=== PATIENT | female | born 2000 | race American Indian/Alaskan Native ===

== ENCOUNTER 2021-08-07 13:07 | Inpatient (IN) | payer MEDICAID ==
[2021-08-07] MEDS ORDERED: LACTATED RINGERS 500 ML IV ONE (15:00)
[2021-08-07 16:03] LABS: Hematocrit 34.6 % (30.3-42.9); Hemoglobin 11.2 gm/dl (10.1-14.3); Mean Corpuscular HGB Conc 33 % (30-34); Mean Corpuscular Volume 76 fl (79-97); Platelet Count 178 K/mm3 (140-440); Red Blood Count 4.57 M/mm3 (3.65-5.03); Red Cell Distribution Width 16.2 % (13.2-15.2)
[2021-08-07 16:07] LABS: Bilirubin,Urine NEG (Negative); Blood,Urine NEG (Negative); Color,Urine Yellow (Yellow); Hyaline Casts,Urine 1 /LPF; Mucus,Urine FEW /HPF; Urobilinogen,Urine < 2.0 mg/dL (<2.0)
[2021-08-07 16:23] LABS: Alanine Aminotransferase 16 units/L (7-56); Uric Acid 5.5 mg/dL (3.5-7.6)
[2021-08-07] MEDS ORDERED: LACTATED RINGERS 1,000 ML ONE (18:05)
[2021-08-07] MEDS ORDERED: ACETAMINOPHEN 325 MG TAB PO PRN (18:49)
[2021-08-07] MEDS ORDERED: DOCUSATE SODIUM 100 MG CAP PO PRN (18:49)
[2021-08-07 19:48] LABS: Basophils % (Auto) 0.4 % (0.0-1.8); Eosinophils % (Auto) 0.9 % (0.0-4.3); Hematocrit 34.6 % (30.3-42.9); Hemoglobin 11.2 gm/dl (10.1-14.3); Lymphocytes # (Auto) 1.9 K/mm3 (1.2-5.4); Lymphocytes % (Auto) 38.4 % (13.4-35.0); Mean Corpuscular HGB Conc 33 % (30-34); Mean Corpuscular Volume 76 fl (79-97); Monocytes # (Auto) 0.4 K/mm3 (0.0-0.8); Monocytes % (Auto) 7.1 % (0.0-7.3); Platelet Count 178 K/mm3 (140-440); Red Blood Count 4.54 M/mm3 (3.65-5.03); Red Cell Distribution Width 16.3 % (13.2-15.2)
--- NOTE | 2021-08-08 12:42 | History and Physical Report ---
History of Present Illness Date of examination: 08/08/21 Chief complaint: sent from [facility] clinic with elevated blood pressure History of present illness: Pt is a 21 year old -Bel[place]ian primigravida NATALIA 09/03/21 at 36w2d who was sent from [facility] office for delivery secondary to elevated blood pressures, and non-compliance with glucose monitoring. She reports good movement, and denies vaginal bleeding or leakage of fluid. She has had one visit at [facility] after transfer into care at 36 wks complicated by pregestational diabetes on Levimir 34 units QAM, 41 units QPM, Metformin 500 mg BID and Novolog sliding scale with 2 units QPM; limited care, obesity, insufficient care, and an LGA fetus (08/07/21 EFW 3580g, 7lb 14 oz, >90%ile). She is GBS negative. Overnight, she was started on Labetalol 200 mg BID. Past History Past Medical History: diabetes (per HPI ) Past Surgical History: no surgical history Family/Genetic History: diabetes, cancer Social history: no significant social history - Obstetrical History Expected Date of Delivery: 09/03/21 Actual Gestation: 36 Week(s) 2 Day(s) : 1 Medications and Allergies Allergies Allergy/AdvReac Type Severity Reaction Status Date / Time No Known Allergies Allergy Unverified 08/07/21 14:20 Active Meds: Active Medications Acetaminophen (Acetaminophen 325 Mg Tab) 650 mg PO Q4H PRN PRN Reason: Pain MILD(1-3)/Fever >100.5/VINES Docusate Sodium (Docusate Sodium 100 Mg Cap) 100 mg PO Q12H PRN PRN Reason: Constipation Cefazolin Sodium 2 gm/ Sodium (Chloride) 100 mls @ 200 mls/hr IV ONCE ONE; Protocol Stop: 08/08/21 13:29 Labetalol HCl (Labetalol 200 Mg Tab) 200 mg PO BID BRITTANY Last Admin: 08/08/21 06:56 Dose: 200 mg Documented by: Multivitamins/Iron/Calcium ( [id number] Fumarate-Folic Acid Vit Tab) 1 each PO QDAY BRITTANY Review of Systems All systems: negative - Vital Signs Vital signs: Vital Signs Pulse BP Pulse Ox 94 H 136/99 100 08/07/21 14:07 08/07/21 14:07 08/07/21 14:07 Temp Pulse Resp BP Pulse Ox 97.5 F L 99 H 20 101/60 98 08/08/21 09:00 08/08/21 12:18 08/08/21 09:00 08/08/21 12:18 08/08/21 09:00 - Physical Exam Breasts: Positive: deferred Abdomen: Positive: soft (obese, gravid) Uterus: Positive: enlarged (gravid ) Extremities: Positive: edema (trace ) - Obstetrical FHR: auscultation normal Uterine Contraction Monitor Mode: External Uterine Contraction Pattern: Absent Uterine Tone Measurement Phase: Resting Results Result Diagrams: 08/07/21 18:55 08/07/21 14:21 Abnormal lab results 08/07/21 08/07/21 08/07/21 Range/Units 14:21 14:21 15:58 MCV 76 L (79-97) fl MCH 25 L (28-32) pg RDW 16.2 H (13.2-15.2) % Lymph % (Auto) (13.4-35.0) % POC Glucose (70-105) mg/dL Lactate Dehydrogenase 218 H (91-180) units/L Urine WBC (Auto) 10.0 H (0.0-6.0) /HPF U Epithel Cells (Auto) 44.0 H (0-13.0) /HPF 08/07/21 08/07/21 Range/Units 17:45 18:55 MCV 76 L (79-97) fl MCH 25 L (28-32) pg RDW 16.3 H (13.2-15.2) % Lymph % (Auto) 38.4 H (13.4-35.0) % POC Glucose 51 L (70-105) mg/dL Lactate Dehydrogenase (91-180) units/L Urine WBC (Auto) (0.0-6.0) /HPF U Epithel Cells (Auto) (0-13.0) /HPF All other labs normal. Assessment and Plan A: IUP at 36w2d Gestational Hypertension Pregestational diabetes on Levimir 34 units QAM, 41 units QPM, Metformin 500 mg BID and Novolog sliding scale with 2 units QPM; poor compliance Limited care Obesity LGA fetus (08/07/21 EFW 3580g, 7lb 14 oz, >90%ile) GBS negative P: Admit to labor and delivery Steroid course Per MFM recommendation, proceed with delivery Notify NICU Accuchek q 4 hours with sliding scale Closely monitor maternal and status
[2021-08-08] MEDS ORDERED: ePHEDrine SULFATE 50 MG/1 ML INJ IV PRN (12:48)
[2021-08-08] MEDS ORDERED: BUTORPHANOL 2 MG/1 ML INJ IV PRN (12:48)
[2021-08-08] MEDS ORDERED: CARBOPROST TROMETHAMINE 250 MCG/1 ML INJ IM PRN (12:48)
[2021-08-08] MEDS ORDERED: OXYTOCIN 10 UNIT/1 ML INJ IM PRN (12:48)
[2021-08-08] MEDS ORDERED: METHYLERGONOVINE MALEATE 0.2 MG/ML VIAL IM PRN (12:48)
[2021-08-08] MEDS ORDERED: miSOPROStol 200 MCG TAB PR PRN (12:48)
[2021-08-08] MEDS ORDERED: ACETAMINOPHEN 325 MG TAB PO PRN (12:48)
[2021-08-08] MEDS ORDERED: MINERAL OIL 30 ML ORAL LIQD PO PRN (12:48)
[2021-08-08] MEDS ORDERED: LOPERAMIDE 2 MG CAP PO PRN (12:48)
[2021-08-08] MEDS ORDERED: TERBUTALINE 1 MG/1 ML INJ SUB-Q PRN (12:48)
[2021-08-08] MEDS ORDERED: LIDOCAINE (2%) 20 MG/1 ML VIAL 20 ML MDV INFILTRATI ONE (12:48)
[2021-08-08] MEDS ORDERED: hydrALAZINE 20 MG/1 ML INJ IV PRN (12:53)
[2021-08-08] MEDS ORDERED: DEXTROSE 50% IN WATER (25GM) 50 ML SYRINGE IV PRN (12:54)
[2021-08-08] MEDS ORDERED: OXYTOCIN DRIP 30 UNITS/500 ML BAG IV SCH (13:00)
[2021-08-08] MEDS ORDERED: DINOPROSTONE 10 MG VAG SUPP VG ONE (14:00)
[2021-08-08] MEDS: INSULIN REGULAR, HUMAN 100 UNITS/1 ML SUB-Q PRN ×2 (14:33→23:42)
[2021-08-08] MEDS: BETAMET ACET/BETAMET NA PH 6 MG/ML INJ 5 ML MDV IM SCH (15:03)
[2021-08-08] MEDS: LACTATED RINGERS 1,000 ML IV SCH (15:10)
[2021-08-08] MEDS: fentaNYL 100 MCG/2 ML INJ IV PRN (21:51)
[2021-08-09] MEDS: ONDANSETRON 4 MG/2 ML INJ IV PRN ×2 (00:36→12:17)
[2021-08-09] MEDS: fentaNYL 100 MCG/2 ML INJ IV PRN ×3 (00:37→13:07)
[2021-08-09] MEDS: INSULIN REGULAR, HUMAN 100 UNITS/1 ML SUB-Q PRN ×5 (02:55→23:03)
[2021-08-09] MEDS: OXYTOCIN DRIP 30 UNITS/500 ML BAG IV SCH ×2 (02:57→09:03)
[2021-08-09] MEDS ORDERED: miSOPROStol 25 MCG TAB PO SCH (04:00)
[2021-08-09] MEDS ORDERED: CALCIUM CARBONATE 500 MG TAB CHEW PO ONE ×2 (06:02→13:00)
--- NOTE | 2021-08-09 10:28 | Progress Note ---
Assessment and Plan - Patient Problems (1) Diabetes Current Visit: Yes Status: Acute Qualifiers: Diabetes mellitus type: type 2 Diabetes mellitus intermediate insulin use: without refrigeration manager use Plan to address problem: Continue to monitor blood glucose levels Insulin per physician orders (2) Pre-eclampsia affecting , antepartum Current Visit: Yes Status: Acute Plan to address problem: 24 hr urine 645 Continue to monitor B/Ps Continue anti-hypertensives as directed (3) Encounter for induction of labor Current Visit: Yes Status: Acute Subjective - Subjective Date of service: 08/09/21 Principal diagnosis: IOL secondary to elevated B/Ps and uncontrolled DM Interval history: Pt is a 21 year old -G[place]ian primigravida NATALIA 09/03/21 at 36w2d who was sent from [facility] office for delivery secondary to elevated blood pressures, and non-compliance with glucose monitoring. She reports good movement, and denies vaginal bleeding or leakage of fluid. She has had one visit at [facility] after transfer into care at 36 wks complicated by pregestational diabetes on Levimir 34 units QAM, 41 units QPM, Metformin 500 mg BID and Novolog sliding scale with 2 units QPM; limited care, obesity, insufficient care, and an LGA fetus (08/07/21 EFW 3580g, 7lb 14 oz, >90%ile). She is GBS negative. Patient reports: movement normal, contractions, no new complaints, no loss of fluid, no vaginal bleeding Objective - Vital Signs Vital Signs: Vital Signs - 12hr 08/08/21 08/08/21 08/08/21 22:31 22:36 22:41 Temperature Pulse Rate 115 H 112 H 116 H Respiratory Rate Blood Pressure O2 Sat by Pulse 97 97 97 Oximetry 08/08/21 08/08/21 08/08/21 22:46 22:51 22:56 Temperature Pulse Rate 107 H 112 H 117 H Respiratory 18 Rate Blood Pressure 132/87 O2 Sat by Pulse 97 96 97 Oximetry 08/08/21 08/08/21 08/08/21 23:01 23:06 23:11 Temperature Pulse Rate 115 H 123 H 121 H Respiratory Rate Blood Pressure O2 Sat by Pulse 97 98 97 Oximetry 08/08/21 08/08/21 08/08/21 23:16 23:21 23:26 Temperature Pulse Rate 125 H 115 H 118 H Respiratory Rate Blood Pressure 135/88 O2 Sat by Pulse 99 98 97 Oximetry 08/08/21 08/08/21 08/08/21 23:31 23:36 23:41 Temperature Pulse Rate 119 H 119 H 120 H Respiratory Rate Blood Pressure O2 Sat by Pulse 97 97 97 Oximetry 08/08/21 08/08/21 08/08/21 23:46 23:51 23:56 Temperature Pulse Rate 117 H 113 H 116 H Respiratory Rate Blood Pressure O2 Sat by Pulse 98 97 99 Oximetry 08/08/21 08/09/21 08/09/21 23:57 00:01 00:03 Temperature Pulse Rate 110 H 111 H Respiratory Rate Blood Pressure 161/93 O2 Sat by Pulse 99 83 L Oximetry 08/09/21 08/09/21 08/09/21 00:06 00:09 00:11 Temperature Pulse Rate 58 L 60 Respiratory Rate Blood Pressure O2 Sat by Pulse 82 L 80 L 81 L Oximetry 08/09/21 08/09/21 08/09/21 00:22 00:23 00:26 Temperature Pulse Rate 125 H 120 H Respiratory Rate Blood Pressure 129/79 O2 Sat by Pulse 92 96 Oximetry 08/09/21 08/09/21 08/09/21 00:27 00:28 00:33 Temperature 98.2 F Pulse Rate 125 H 123 H 120 H Respiratory 17 Rate Blood Pressure 132/83 O2 Sat by Pulse 97 96 Oximetry 08/09/21 08/09/21 08/09/21 00:38 00:43 00:48 Temperature Pulse Rate 119 H 120 H 124 H Respiratory Rate Blood Pressure O2 Sat by Pulse 98 97 99 Oximetry 08/09/21 08/09/21 08/09/21 00:53 00:56 00:58 Temperature Pulse Rate 118 H 121 H 116 H Respiratory Rate Blood Pressure 129/83 O2 Sat by Pulse 98 99 Oximetry 08/09/21 08/09/21 08/09/21 01:03 01:08 01:13 Temperature Pulse Rate 118 H 122 H 129 H Respiratory Rate Blood Pressure O2 Sat by Pulse 99 99 98 Oximetry 08/09/21 08/09/21 08/09/21 01:18 01:23 01:26 Temperature Pulse Rate 118 H 121 H 123 H Respiratory Rate Blood Pressure 116/69 O2 Sat by Pulse 98 96 Oximetry 08/09/21 08/09/21 08/09/21 01:28 01:33 01:38 Temperature Pulse Rate 113 H 116 H 127 H Respiratory Rate Blood Pressure O2 Sat by Pulse 98 96 98 Oximetry 08/09/21 08/09/21 08/09/21 01:43 01:48 01:53 Temperature Pulse Rate 111 H 105 H 115 H Respiratory Rate Blood Pressure O2 Sat by Pulse 98 97 96 Oximetry 08/09/21 08/09/21 08/09/21 01:56 01:58 02:03 Temperature Pulse Rate 113 H 117 H 107 H Respiratory Rate Blood Pressure 125/69 O2 Sat by Pulse 95 95 Oximetry 08/09/21 08/09/21 08/09/21 02:08 02:13 02:15 Temperature Pulse Rate 106 H 110 H 117 H Respiratory Rate Blood Pressure O2 Sat by Pulse 96 96 94 Oximetry 08/09/21 08/09/21 08/09/21 02:18 02:23 02:26 Temperature Pulse Rate 110 H 115 H 111 H Respiratory Rate Blood Pressure 127/75 O2 Sat by Pulse 95 97 Oximetry 08/09/21 08/09/21 08/09/21 02:28 02:33 02:38 Temperature Pulse Rate 113 H 109 H 114 H Respiratory Rate Blood Pressure O2 Sat by Pulse 96 96 96 Oximetry 08/09/21 08/09/21 08/09/21 02:47 02:52 02:57 Temperature Pulse Rate 130 H 112 H 115 H Respiratory Rate Blood Pressure O2 Sat by Pulse 97 98 99 Oximetry 08/09/21 08/09/21 08/09/21 03:02 03:07 03:12 Temperature Pulse Rate 115 H 110 H 110 H Respiratory Rate Blood Pressure O2 Sat by Pulse 98 97 98 Oximetry 08/09/21 08/09/21 08/09/21 03:17 03:22 03:27 Temperature Pulse Rate 109 H 115 H 111 H Respiratory Rate Blood Pressure 131/74 O2 Sat by Pulse 97 98 99 Oximetry 08/09/21 08/09/21 08/09/21 03:32 03:42 03:47 Temperature Pulse Rate 104 H 112 H 108 H Respiratory Rate Blood Pressure O2 Sat by Pulse 98 98 98 Oximetry 08/09/21 08/09/21 08/09/21 03:52 03:57 04:02 Temperature Pulse Rate 108 H 110 H 112 H Respiratory Rate Blood Pressure 133/79 O2 Sat by Pulse 99 98 99 Oximetry 08/09/21 08/09/21 08/09/21 04:07 04:12 04:17 Temperature Pulse Rate 124 H 131 H 111 H Respiratory Rate Blood Pressure O2 Sat by Pulse 99 100 99 Oximetry 08/09/21 08/09/21 08/09/21 04:22 04:27 04:32 Temperature Pulse Rate 109 H 106 H 106 H Respiratory Rate Blood Pressure 137/80 O2 Sat by Pulse 97 99 98 Oximetry 08/09/21 08/09/21 08/09/21 04:36 04:37 04:42 Temperature 98 F Pulse Rate 103 H 108 H Respiratory Rate Blood Pressure O2 Sat by Pulse 98 99 Oximetry 08/09/21 08/09/21 08/09/21 04:47 04:52 04:56 Temperature Pulse Rate 111 H 106 H 112 H Respiratory Rate Blood Pressure 159/86 O2 Sat by Pulse 99 99 Oximetry 08/09/21 08/09/21 08/09/21 04:57 05:02 05:07 Temperature Pulse Rate 116 H 104 H 107 H Respiratory Rate Blood Pressure O2 Sat by Pulse 99 99 99 Oximetry 08/09/21 08/09/21 08/09/21 05:12 05:17 05:22 Temperature Pulse Rate 105 H 107 H 99 H Respiratory Rate Blood Pressure O2 Sat by Pulse 99 99 97 Oximetry 08/09/21 08/09/21 08/09/21 05:27 05:32 05:54 Temperature Pulse Rate 97 H 102 H 125 H Respiratory Rate Blood Pressure 147/79 O2 Sat by Pulse 97 97 99 Oximetry 08/09/21 08/09/21 08/09/21 05:59 06:04 06:09 Temperature Pulse Rate 149 H 120 H 107 H Respiratory Rate Blood Pressure O2 Sat by Pulse 99 99 99 Oximetry 08/09/21 08/09/21 08/09/21 06:42 06:47 06:52 Temperature Pulse Rate 107 H 110 H 107 H Respiratory Rate Blood Pressure O2 Sat by Pulse 99 98 98 Oximetry 08/09/21 08/09/21 08/09/21 06:57 07:02 07:07 Temperature Pulse Rate 104 H 108 H 100 H Respiratory Rate Blood Pressure O2 Sat by Pulse 100 98 98 Oximetry 08/09/21 08/09/21 08/09/21 07:12 07:17 07:22 Temperature Pulse Rate 105 H 105 H 99 H Respiratory Rate Blood Pressure O2 Sat by Pulse 97 98 98 Oximetry 08/09/21 08/09/21 08/09/21 07:27 07:43 07:48 Temperature Pulse Rate 115 H 103 H 115 H Respiratory Rate Blood Pressure O2 Sat by Pulse 98 97 98 Oximetry 08/09/21 08/09/21 08/09/21 07:54 08:37 08:42 Temperature Pulse Rate 112 H 103 H 106 H Respiratory Rate Blood Pressure 128/79 O2 Sat by Pulse 100 100 Oximetry 08/09/21 08/09/21 08/09/21 08:47 08:52 08:57 Temperature Pulse Rate 99 H 105 H 112 H Respiratory Rate Blood Pressure O2 Sat by Pulse 100 100 100 Oximetry 08/09/21 08/09/21 08/09/21 09:02 09:07 09:12 Temperature Pulse Rate 96 H 98 H 113 H Respiratory Rate Blood Pressure O2 Sat by Pulse 100 98 99 Oximetry 08/09/21 08/09/21 08/09/21 09:17 09:22 09:27 Temperature Pulse Rate 109 H 104 H 95 H Respiratory Rate Blood Pressure O2 Sat by Pulse 99 99 99 Oximetry 08/09/21 08/09/21 08/09/21 09:32 09:37 09:42 Temperature Pulse Rate 106 H 93 H 99 H Respiratory Rate Blood Pressure O2 Sat by Pulse 99 97 98 Oximetry 08/09/21 08/09/21 08/09/21 09:47 09:52 09:57 Temperature Pulse Rate 96 H 100 H 101 H Respiratory Rate Blood Pressure O2 Sat by Pulse 99 98 98 Oximetry 08/09/21 08/09/21 08/09/21 10:02 10:07 10:12 Temperature Pulse Rate 102 H 91 H 124 H Respiratory Rate Blood Pressure O2 Sat by Pulse 98 98 99 Oximetry 08/09/21 08/09/21 08/09/21 10:17 10:22 10:27 Temperature Pulse Rate 119 H 93 H 95 H Respiratory Rate Blood Pressure O2 Sat by Pulse 97 98 98 Oximetry - Exam Breasts: deferred Cardiovascular: Regular rate Lungs: Normal air movement FHR: category 1 Uterine Contraction Monitor Mode: External Cervical Dilatation: 0.5 Cervical Effacement Percentage: 50 station: -3 Uterine Contraction Frequency (min): 3-5 Uterine Contraction Pattern: Irregular Uterine Tone Measurement Phase: Resting Uterine Contraction Intensity: Mild - Labs Labs: Abnormal Labs 08/07/21 08/07/21 08/07/21 14:21 14:21 15:58 MCV 76 L MCH 25 L RDW 16.2 H Lymph % (Auto) POC Glucose Lactate Dehydrogenase 218 H Urine WBC (Auto) 10.0 H U Epithel Cells (Auto) 44.0 H Ur Total Protein 24 Hr Urine Total Protein 08/07/21 08/07/21 08/07/21 17:45 18:49 18:55 MCV 76 L MCH 25 L RDW 16.3 H Lymph % (Auto) 38.4 H POC Glucose 51 L Lactate Dehydrogenase Urine WBC (Auto) U Epithel Cells (Auto) Ur Total Protein 24 Hr 645.00 H Urine Total Protein 43 H 08/08/21 08/08/21 08/09/21 14:16 23:11 02:48 MCV MCH RDW Lymph % (Auto) POC Glucose 194 H 163 H 173 H Lactate Dehydrogenase Urine WBC (Auto) U Epithel Cells (Auto) Ur Total Protein 24 Hr Urine Total Protein 08/09/21 06:45 MCV MCH RDW Lymph % (Auto) POC Glucose 169 H Lactate Dehydrogenase Urine WBC (Auto) U Epithel Cells (Auto) Ur Total Protein 24 Hr Urine Total Protein Laboratory Results - last 24 hr 08/07/21 08/08/21 08/08/21 18:49 14:16 18:24 POC Glucose 194 H 90 Urine Total Volume 1500 Ur Total Protein 24 Hr 645.00 H Urine Total Protein 43 H Coronavirus (PCR) 08/08/21 08/08/21 08/09/21 23:11 Unknown 02:48 POC Glucose 163 H 173 H Urine Total Volume Ur Total Protein 24 Hr Urine Total Protein Coronavirus (PCR) Negative 08/09/21 06:45 POC Glucose 169 H Urine Total Volume Ur Total Protein 24 Hr Urine Total Protein Coronavirus (PCR)
[2021-08-09] MEDS: BETAMET ACET/BETAMET NA PH 6 MG/ML INJ 5 ML MDV IM SCH (10:34)
[2021-08-09] MEDS: LACTATED RINGERS 1,000 ML IV SCH ×2 (10:34→18:58)
[2021-08-09] MEDS: PRENATAL VIT27-FE FUMARATE-FOLIC ACID VIT TAB PO SCH (10:40)
--- NOTE | 2021-08-09 16:19 | Vascular Lab Report ---
. DUPLEX DOPPLER LOWER EXTREMITY VEINS, BILATERAL INDICATION / CLINICAL INFORMATION: LEG PAIN. TECHNIQUE: Duplex doppler imaging was performed through the veins of both lower extremities using venous sandee joanna and other maneuvers. COMPARISON: None available. FINDINGS: RIGHT COMMON FEMORAL VEIN: Negative. RIGHT FEMORAL VEIN: Negative. RIGHT POPLITEAL VEIN: Negative. RIGHT CALF VEINS: Negative. LEFT COMMON FEMORAL VEIN: Negative. LEFT FEMORAL VEIN: Negative. LEFT POPLITEAL VEIN: Negative. LEFT CALF VEINS: Negative. ADDITIONAL FINDINGS: None. IMPRESSION: 1. No sonographic evidence for DVT in either lower extremity. Signer Name: Og Gould MD Signed: 08/09/2021 4:14 PM Workstation Name: [id number]
[2021-08-09] MEDS ORDERED: BUTORPHANOL 2 MG/1 ML INJ IV PRN (17:32)
--- NOTE | 2021-08-09 17:40 | Progress Note ---
Assessment and Plan - Patient Problems (1) Diabetes Current Visit: Yes Status: Acute Qualifiers: Diabetes mellitus type: type 2 Diabetes mellitus usp insulin use: without intermediate card tender use Plan to address problem: Continue to monitor blood glucose levels Insulin per physician orders (2) Pre-eclampsia affecting , antepartum Current Visit: Yes Status: Acute Plan to address problem: 24 hr urine 645 Continue to monitor B/Ps Continue anti-hypertensives as directed (3) Encounter for induction of labor Current Visit: Yes Status: Acute Plan to address problem: Cooks balloon inserted without difficulty Pitocin to remain on low-dose at 6mu/min Pain meds as desired per orders Discussed negative bilateral leg dopplers for DVTs and edema secondary to pre- eclampsia Continue to monitor and maternal status closely Subjective - Subjective Date of service: 08/09/21 Principal diagnosis: IOL secondary to elevated B/Ps and uncontrolled DM Interval history: Pt is a 21 year old -[place] primigravida NATALIA 09/03/21 at 36w2d who was sent from [facility] office for delivery secondary to elevated blood pressures, and non-compliance with glucose monitoring. She reports good movement, and denies vaginal bleeding or leakage of fluid. She has had one visit at [facility] after transfer into care at 36 wks complicated by pregestational diabetes on Levimir 34 units QAM, 41 units QPM, Metformin 500 mg BID and Novolog sliding scale with 2 units QPM; limited care, obesity, insufficient care, and an LGA fetus (08/07/21 EFW 3580g, 7lb 14 oz, >90%ile). She is GBS negative. Patient reports: movement normal, contractions, no new complaints, no loss of fluid, no vaginal bleeding Objective - Vital Signs Vital Signs: Vital Signs - 12hr 08/09/21 08/09/21 08/09/21 05:54 05:59 06:04 Temperature Pulse Rate 125 H 149 H 120 H Blood Pressure O2 Sat by Pulse 99 99 99 Oximetry O2 Sat by Pulse Oximetry [ Anterior Bilateral] 08/09/21 08/09/21 08/09/21 06:09 06:42 06:47 Temperature Pulse Rate 107 H 107 H 110 H Blood Pressure O2 Sat by Pulse 99 99 98 Oximetry O2 Sat by Pulse Oximetry [ Anterior Bilateral] 08/09/21 08/09/21 08/09/21 06:52 06:57 07:02 Temperature Pulse Rate 107 H 104 H 108 H Blood Pressure O2 Sat by Pulse 98 100 98 Oximetry O2 Sat by Pulse Oximetry [ Anterior Bilateral] 08/09/21 08/09/21 08/09/21 07:07 07:12 07:17 Temperature Pulse Rate 100 H 105 H 105 H Blood Pressure O2 Sat by Pulse 98 97 98 Oximetry O2 Sat by Pulse Oximetry [ Anterior Bilateral] 08/09/21 08/09/21 08/09/21 07:22 07:27 07:43 Temperature Pulse Rate 99 H 115 H 103 H Blood Pressure O2 Sat by Pulse 98 98 97 Oximetry O2 Sat by Pulse Oximetry [ Anterior Bilateral] 08/09/21 08/09/21 08/09/21 07:48 07:54 08:00 Temperature 98.2 F Pulse Rate 115 H 112 H Blood Pressure 128/79 O2 Sat by Pulse 98 Oximetry O2 Sat by Pulse Oximetry [ Anterior Bilateral] 08/09/21 08/09/21 08/09/21 08:30 08:37 08:42 Temperature Pulse Rate 103 H 106 H Blood Pressure O2 Sat by Pulse 100 100 Oximetry O2 Sat by Pulse 99 Oximetry [ Anterior Bilateral] 08/09/21 08/09/21 08/09/21 08:47 08:52 08:57 Temperature Pulse Rate 99 H 105 H 112 H Blood Pressure O2 Sat by Pulse 100 100 100 Oximetry O2 Sat by Pulse Oximetry [ Anterior Bilateral] 08/09/21 08/09/21 08/09/21 09:02 09:07 09:12 Temperature Pulse Rate 96 H 98 H 113 H Blood Pressure O2 Sat by Pulse 100 98 99 Oximetry O2 Sat by Pulse Oximetry [ Anterior Bilateral] 08/09/21 08/09/21 08/09/21 09:17 09:22 09:27 Temperature Pulse Rate 109 H 104 H 95 H Blood Pressure O2 Sat by Pulse 99 99 99 Oximetry O2 Sat by Pulse Oximetry [ Anterior Bilateral] 08/09/21 08/09/21 08/09/21 09:32 09:37 09:42 Temperature Pulse Rate 106 H 93 H 99 H Blood Pressure O2 Sat by Pulse 99 97 98 Oximetry O2 Sat by Pulse Oximetry [ Anterior Bilateral] 08/09/21 08/09/21 08/09/21 09:47 09:52 09:57 Temperature Pulse Rate 96 H 100 H 101 H Blood Pressure O2 Sat by Pulse 99 98 98 Oximetry O2 Sat by Pulse Oximetry [ Anterior Bilateral] 08/09/21 08/09/21 08/09/21 10:02 10:07 10:12 Temperature Pulse Rate 102 H 91 H 124 H Blood Pressure O2 Sat by Pulse 98 98 99 Oximetry O2 Sat by Pulse Oximetry [ Anterior Bilateral] 08/09/21 08/09/21 08/09/21 10:17 10:22 10:27 Temperature Pulse Rate 119 H 93 H 95 H Blood Pressure O2 Sat by Pulse 97 98 98 Oximetry O2 Sat by Pulse Oximetry [ Anterior Bilateral] 08/09/21 08/09/21 08/09/21 10:32 10:37 10:38 Temperature Pulse Rate 142 H 116 H 113 H Blood Pressure 128/79 O2 Sat by Pulse 99 99 Oximetry O2 Sat by Pulse Oximetry [ Anterior Bilateral] 08/09/21 08/09/21 08/09/21 10:42 10:47 10:52 Temperature Pulse Rate 117 H 109 H 104 H Blood Pressure O2 Sat by Pulse 99 98 97 Oximetry O2 Sat by Pulse Oximetry [ Anterior Bilateral] 08/09/21 08/09/21 08/09/21 10:57 11:02 11:07 Temperature Pulse Rate 98 H 100 H 108 H Blood Pressure O2 Sat by Pulse 98 99 99 Oximetry O2 Sat by Pulse Oximetry [ Anterior Bilateral] 08/09/21 08/09/21 08/09/21 11:12 11:17 11:22 Temperature Pulse Rate 100 H 113 H 108 H Blood Pressure O2 Sat by Pulse 97 98 99 Oximetry O2 Sat by Pulse Oximetry [ Anterior Bilateral] 08/09/21 08/09/21 08/09/21 11:27 11:32 11:33 Temperature Pulse Rate 121 H 113 H 106 H Blood Pressure 161/93 O2 Sat by Pulse 99 99 Oximetry O2 Sat by Pulse Oximetry [ Anterior Bilateral] 08/09/21 08/09/21 08/09/21 11:37 11:42 11:47 Temperature Pulse Rate 92 H 112 H 95 H Blood Pressure O2 Sat by Pulse 98 98 99 Oximetry O2 Sat by Pulse Oximetry [ Anterior Bilateral] 08/09/21 08/09/21 08/09/21 11:52 11:57 12:00 Temperature 98.1 F Pulse Rate 98 H 107 H Blood Pressure O2 Sat by Pulse 98 98 Oximetry O2 Sat by Pulse Oximetry [ Anterior Bilateral] 08/09/21 08/09/21 08/09/21 12:02 12:03 12:07 Temperature Pulse Rate 108 H 99 H 100 H Blood Pressure 126/75 O2 Sat by Pulse 98 98 Oximetry O2 Sat by Pulse Oximetry [ Anterior Bilateral] 08/09/21 08/09/21 08/09/21 12:28 12:33 12:38 Temperature Pulse Rate 110 H 97 H 117 H Blood Pressure 143/80 O2 Sat by Pulse 99 99 98 Oximetry O2 Sat by Pulse Oximetry [ Anterior Bilateral] 08/09/21 08/09/21 08/09/21 12:43 12:48 12:49 Temperature Pulse Rate 98 H 98 H 43 L Blood Pressure O2 Sat by Pulse 99 99 88 Oximetry O2 Sat by Pulse Oximetry [ Anterior Bilateral] 08/09/21 08/09/21 08/09/21 12:54 12:59 13:04 Temperature Pulse Rate 94 H 112 H 108 H Blood Pressure O2 Sat by Pulse 91 96 99 Oximetry O2 Sat by Pulse Oximetry [ Anterior Bilateral] 08/09/21 08/09/21 08/09/21 13:05 13:09 13:14 Temperature Pulse Rate 92 H 99 H 103 H Blood Pressure 144/76 O2 Sat by Pulse 97 98 Oximetry O2 Sat by Pulse Oximetry [ Anterior Bilateral] 08/09/21 08/09/21 08/09/21 13:19 13:24 13:29 Temperature Pulse Rate 92 H 98 H 109 H Blood Pressure O2 Sat by Pulse 99 98 99 Oximetry O2 Sat by Pulse Oximetry [ Anterior Bilateral] 08/09/21 08/09/21 08/09/21 13:34 13:39 13:44 Temperature Pulse Rate 103 H 100 H 98 H Blood Pressure 126/76 O2 Sat by Pulse 97 97 99 Oximetry O2 Sat by Pulse Oximetry [ Anterior Bilateral] 08/09/21 08/09/21 08/09/21 13:49 13:54 13:59 Temperature Pulse Rate 117 H 90 109 H Blood Pressure O2 Sat by Pulse 97 97 99 Oximetry O2 Sat by Pulse Oximetry [ Anterior Bilateral] 08/09/21 08/09/21 08/09/21 14:04 14:05 14:09 Temperature Pulse Rate 107 H 107 H 111 H Blood Pressure 127/77 O2 Sat by Pulse 98 97 Oximetry O2 Sat by Pulse Oximetry [ Anterior Bilateral] 08/09/21 08/09/21 08/09/21 14:14 14:19 14:24 Temperature Pulse Rate 98 H 100 H 101 H Blood Pressure O2 Sat by Pulse 98 99 99 Oximetry O2 Sat by Pulse Oximetry [ Anterior Bilateral] 08/09/21 08/09/21 08/09/21 14:29 14:34 14:39 Temperature Pulse Rate 104 H 103 H 99 H Blood Pressure 131/85 O2 Sat by Pulse 99 99 100 Oximetry O2 Sat by Pulse Oximetry [ Anterior Bilateral] 08/09/21 08/09/21 08/09/21 14:44 14:49 14:54 Temperature Pulse Rate 111 H 107 H 95 H Blood Pressure O2 Sat by Pulse 98 99 99 Oximetry O2 Sat by Pulse Oximetry [ Anterior Bilateral] 08/09/21 08/09/21 08/09/21 14:59 15:03 15:04 Temperature Pulse Rate 94 H 93 H 96 H Blood Pressure 134/75 O2 Sat by Pulse 98 98 Oximetry O2 Sat by Pulse Oximetry [ Anterior Bilateral] 08/09/21 08/09/21 08/09/21 15:09 15:14 15:19 Temperature Pulse Rate 108 H 98 H 104 H Blood Pressure O2 Sat by Pulse 98 98 98 Oximetry O2 Sat by Pulse Oximetry [ Anterior Bilateral] 08/09/21 08/09/21 08/09/21 15:24 15:29 15:34 Temperature Pulse Rate 99 H 113 H 103 H Blood Pressure O2 Sat by Pulse 97 99 98 Oximetry O2 Sat by Pulse Oximetry [ Anterior Bilateral] 08/09/21 08/09/21 08/09/21 15:35 15:39 15:44 Temperature Pulse Rate 104 H 101 H 103 H Blood Pressure 135/81 O2 Sat by Pulse 98 99 Oximetry O2 Sat by Pulse Oximetry [ Anterior Bilateral] 08/09/21 08/09/21 08/09/21 15:49 15:54 15:59 Temperature 98.2 F Pulse Rate 113 H 122 H 95 H Blood Pressure O2 Sat by Pulse 98 99 99 Oximetry O2 Sat by Pulse Oximetry [ Anterior Bilateral] 08/09/21 08/09/21 08/09/21 16:00 16:04 16:09 Temperature 98.4 F Pulse Rate 109 H 99 H Blood Pressure 134/74 O2 Sat by Pulse 98 98 Oximetry O2 Sat by Pulse Oximetry [ Anterior Bilateral] 08/09/21 08/09/21 08/09/21 16:14 16:19 16:24 Temperature Pulse Rate 106 H 99 H 102 H Blood Pressure O2 Sat by Pulse 99 96 97 Oximetry O2 Sat by Pulse Oximetry [ Anterior Bilateral] 08/09/21 08/09/21 08/09/21 16:29 16:43 16:48 Temperature Pulse Rate 100 H 105 H 95 H Blood Pressure O2 Sat by Pulse 99 98 98 Oximetry O2 Sat by Pulse Oximetry [ Anterior Bilateral] 08/09/21 08/09/21 08/09/21 16:53 16:58 17:03 Temperature Pulse Rate 101 H 102 H 117 H Blood Pressure O2 Sat by Pulse 96 98 100 Oximetry O2 Sat by Pulse Oximetry [ Anterior Bilateral] 08/09/21 08/09/21 08/09/21 17:04 17:08 17:13 Temperature Pulse Rate 103 H 103 H 101 H Blood Pressure 133/86 O2 Sat by Pulse 99 98 Oximetry O2 Sat by Pulse Oximetry [ Anterior Bilateral] 08/09/21 08/09/21 08/09/21 17:18 17:23 17:28 Temperature Pulse Rate 111 H 106 H 108 H Blood Pressure O2 Sat by Pulse 99 100 98 Oximetry O2 Sat by Pulse Oximetry [ Anterior Bilateral] 08/09/21 17:33 Temperature Pulse Rate 103 H Blood Pressure O2 Sat by Pulse 99 Oximetry O2 Sat by Pulse Oximetry [ Anterior Bilateral] - Exam Breasts: deferred Cardiovascular: Regular rate Lungs: Normal air movement FHR: category 1 Uterine Contraction Monitor Mode: External Cervical Dilatation: 1 (vertex) Cervical Effacement Percentage: 50 station: -3 Uterine Contraction Frequency (min): 2-5 Uterine Contraction Pattern: Irregular Uterine Tone Measurement Phase: Resting Uterine Contraction Intensity: Mild Extremities: edema Deep Tendon Reflex Grade: Normal +2 - Labs Labs: Abnormal Labs 08/07/21 08/07/21 08/07/21 14:21 14:21 15:58 MCV 76 L MCH 25 L RDW 16.2 H Lymph % (Auto) POC Glucose Lactate Dehydrogenase 218 H Urine WBC (Auto) 10.0 H U Epithel Cells (Auto) 44.0 H Ur Total Protein 24 Hr Urine Total Protein 08/07/21 08/07/21 08/07/21 17:45 18:49 18:55 MCV 76 L MCH 25 L RDW 16.3 H Lymph % (Auto) 38.4 H POC Glucose 51 L Lactate Dehydrogenase Urine WBC (Auto) U Epithel Cells (Auto) Ur Total Protein 24 Hr 645.00 H Urine Total Protein 43 H 08/08/21 08/08/21 08/09/21 14:16 23:11 02:48 MCV MCH RDW Lymph % (Auto) POC Glucose 194 H 163 H 173 H Lactate Dehydrogenase Urine WBC (Auto) U Epithel Cells (Auto) Ur Total Protein 24 Hr Urine Total Protein 08/09/21 08/09/21 08/09/21 06:45 11:05 15:53 MCV MCH RDW Lymph % (Auto) POC Glucose 169 H 181 H 146 H Lactate Dehydrogenase Urine WBC (Auto) U Epithel Cells (Auto) Ur Total Protein 24 Hr Urine Total Protein Laboratory Results - last 24 hr 08/07/21 08/08/21 08/08/21 18:49 18:24 23:11 POC Glucose 90 163 H Urine Total Volume 1500 Ur Total Protein 24 Hr 645.00 H Urine Total Protein 43 H 08/09/21 08/09/21 08/09/21 02:48 06:45 11:05 POC Glucose 173 H 169 H 181 H Urine Total Volume Ur Total Protein 24 Hr Urine Total Protein 08/09/21 15:53 POC Glucose 146 H Urine Total Volume Ur Total Protein 24 Hr Urine Total Protein
[2021-08-09] MEDS ORDERED: diphenhydrAMINE 50 MG CAP PO ONE (20:06)
[2021-08-10] MEDS: fentaNYL 100 MCG/2 ML INJ IV PRN ×4 (01:56→12:49)
[2021-08-10] MEDS: INSULIN REGULAR, HUMAN 100 UNITS/1 ML SUB-Q PRN ×4 (03:21→18:34)
[2021-08-10] MEDS: PRENATAL VIT27-FE FUMARATE-FOLIC ACID VIT TAB PO SCH (09:12)
[2021-08-10] MEDS: LACTATED RINGERS 1,000 ML IV SCH ×2 (09:56→22:37)
--- NOTE | 2021-08-10 12:21 | Progress Note ---
Assessment and Plan - Patient Problems (1) Diabetes Current Visit: Yes Status: Acute Qualifiers: Diabetes mellitus type: type 2 Diabetes mellitus alf insulin use: without superintendent terminal use Plan to address problem: Continue induction as scheduled (2) PIH ( induced hypertension) Current Visit: Yes Status: Acute Subjective - Subjective Date of service: 08/10/21 Principal diagnosis: IOL secondary to elevated B/Ps and uncontrolled DM Interval history: Amniotomy was performed with blood-tinged fluid. Cervix is 3 cm dilated. will continue to increase Pitocin. Patient reports: loss of fluid, movement normal, contractions, no new complaints, no vaginal bleeding Objective - Vital Signs Vital Signs: Vital Signs - 12hr 08/10/21 08/10/21 08/10/21 00:22 00:27 00:32 Pulse Rate 107 H 106 H 117 H Respiratory Rate Blood Pressure O2 Sat by Pulse 98 98 99 Oximetry O2 Sat by Pulse Oximetry [ Anterior Bilateral] 08/10/21 08/10/21 08/10/21 00:33 00:37 00:42 Pulse Rate 118 H 125 H 114 H Respiratory Rate Blood Pressure 165/83 O2 Sat by Pulse 99 100 Oximetry O2 Sat by Pulse Oximetry [ Anterior Bilateral] 08/10/21 08/10/21 08/10/21 00:47 00:52 00:57 Pulse Rate 114 H 103 H 118 H Respiratory Rate Blood Pressure O2 Sat by Pulse 100 99 98 Oximetry O2 Sat by Pulse Oximetry [ Anterior Bilateral] 08/10/21 08/10/21 08/10/21 01:02 01:03 01:07 Pulse Rate 105 H 108 H 108 H Respiratory Rate Blood Pressure 172/93 O2 Sat by Pulse 99 99 Oximetry O2 Sat by Pulse Oximetry [ Anterior Bilateral] 08/10/21 08/10/21 08/10/21 01:12 01:15 01:17 Pulse Rate 108 H 111 H Respiratory Rate Blood Pressure 173/93 O2 Sat by Pulse 99 98 Oximetry O2 Sat by Pulse Oximetry [ Anterior Bilateral] 08/10/21 08/10/21 08/10/21 01:22 01:30 01:32 Pulse Rate 111 H 124 H 116 H Respiratory Rate Blood Pressure 133/81 O2 Sat by Pulse 98 100 Oximetry O2 Sat by Pulse Oximetry [ Anterior Bilateral] 08/10/21 08/10/21 08/10/21 01:35 01:40 01:45 Pulse Rate 115 H 121 H 118 H Respiratory Rate Blood Pressure O2 Sat by Pulse 99 100 99 Oximetry O2 Sat by Pulse Oximetry [ Anterior Bilateral] 08/10/21 08/10/21 08/10/21 01:50 01:55 01:56 Pulse Rate 107 H 112 H Respiratory 18 Rate Blood Pressure O2 Sat by Pulse 99 99 Oximetry O2 Sat by Pulse Oximetry [ Anterior Bilateral] 08/10/21 08/10/21 08/10/21 02:00 02:03 02:05 Pulse Rate 117 H 120 H 119 H Respiratory Rate Blood Pressure 128/84 O2 Sat by Pulse 99 97 Oximetry O2 Sat by Pulse Oximetry [ Anterior Bilateral] 08/10/21 08/10/21 08/10/21 02:10 02:15 02:20 Pulse Rate 121 H 119 H 122 H Respiratory Rate Blood Pressure O2 Sat by Pulse 99 98 99 Oximetry O2 Sat by Pulse Oximetry [ Anterior Bilateral] 08/10/21 08/10/21 08/10/21 02:25 02:30 02:32 Pulse Rate 115 H 122 H 121 H Respiratory Rate Blood Pressure 123/68 O2 Sat by Pulse 98 98 Oximetry O2 Sat by Pulse Oximetry [ Anterior Bilateral] 08/10/21 08/10/21 08/10/21 02:35 02:40 02:45 Pulse Rate 122 H 119 H 112 H Respiratory Rate Blood Pressure O2 Sat by Pulse 97 98 98 Oximetry O2 Sat by Pulse Oximetry [ Anterior Bilateral] 08/10/21 08/10/21 08/10/21 02:50 02:55 02:56 Pulse Rate 118 H 119 H Respiratory 18 Rate Blood Pressure O2 Sat by Pulse 98 99 Oximetry O2 Sat by Pulse Oximetry [ Anterior Bilateral] 08/10/21 08/10/21 08/10/21 03:00 03:02 03:05 Pulse Rate 120 H 125 H 109 H Respiratory Rate Blood Pressure 124/78 O2 Sat by Pulse 97 98 Oximetry O2 Sat by Pulse Oximetry [ Anterior Bilateral] 08/10/21 08/10/21 08/10/21 03:10 03:15 03:20 Pulse Rate 114 H 134 H 128 H Respiratory Rate Blood Pressure O2 Sat by Pulse 98 99 97 Oximetry O2 Sat by Pulse Oximetry [ Anterior Bilateral] 08/10/21 08/10/21 08/10/21 03:36 03:41 03:46 Pulse Rate 138 H 120 H 112 H Respiratory Rate Blood Pressure O2 Sat by Pulse 99 98 99 Oximetry O2 Sat by Pulse Oximetry [ Anterior Bilateral] 08/10/21 08/10/21 08/10/21 03:51 03:56 04:01 Pulse Rate 107 H 111 H 108 H Respiratory Rate Blood Pressure O2 Sat by Pulse 98 98 99 Oximetry O2 Sat by Pulse Oximetry [ Anterior Bilateral] 08/10/21 08/10/21 08/10/21 04:03 04:06 04:11 Pulse Rate 114 H 127 H 116 H Respiratory Rate Blood Pressure 150/78 O2 Sat by Pulse 99 99 Oximetry O2 Sat by Pulse Oximetry [ Anterior Bilateral] 08/10/21 08/10/21 08/10/21 04:16 04:21 04:30 Pulse Rate 119 H 123 H 127 H Respiratory Rate Blood Pressure O2 Sat by Pulse 98 99 100 Oximetry O2 Sat by Pulse Oximetry [ Anterior Bilateral] 08/10/21 08/10/21 08/10/21 04:33 04:35 04:40 Pulse Rate 116 H 120 H 116 H Respiratory Rate Blood Pressure 134/82 O2 Sat by Pulse 100 99 Oximetry O2 Sat by Pulse Oximetry [ Anterior Bilateral] 08/10/21 08/10/21 08/10/21 04:45 04:50 04:55 Pulse Rate 106 H 120 H 130 H Respiratory Rate Blood Pressure O2 Sat by Pulse 99 98 99 Oximetry O2 Sat by Pulse Oximetry [ Anterior Bilateral] 08/10/21 08/10/21 08/10/21 05:00 05:03 05:05 Pulse Rate 112 H 107 H 120 H Respiratory Rate Blood Pressure 132/69 O2 Sat by Pulse 99 99 Oximetry O2 Sat by Pulse Oximetry [ Anterior Bilateral] 08/10/21 08/10/21 08/10/21 05:10 05:15 05:20 Pulse Rate 107 H 103 H 112 H Respiratory Rate Blood Pressure O2 Sat by Pulse 99 99 99 Oximetry O2 Sat by Pulse Oximetry [ Anterior Bilateral] 08/10/21 08/10/21 08/10/21 05:25 05:32 05:33 Pulse Rate 105 H 109 H 108 H Respiratory Rate Blood Pressure 133/78 O2 Sat by Pulse 99 100 Oximetry O2 Sat by Pulse Oximetry [ Anterior Bilateral] 08/10/21 08/10/21 08/10/21 05:37 05:42 05:47 Pulse Rate 111 H 107 H 104 H Respiratory Rate Blood Pressure O2 Sat by Pulse 99 98 99 Oximetry O2 Sat by Pulse Oximetry [ Anterior Bilateral] 08/10/21 08/10/21 08/10/21 05:52 05:57 06:02 Pulse Rate 113 H 113 H 110 H Respiratory Rate Blood Pressure 133/73 O2 Sat by Pulse 99 100 100 Oximetry O2 Sat by Pulse Oximetry [ Anterior Bilateral] 08/10/21 08/10/21 08/10/21 06:07 06:12 06:17 Pulse Rate 107 H 111 H 109 H Respiratory Rate Blood Pressure O2 Sat by Pulse 99 99 100 Oximetry O2 Sat by Pulse Oximetry [ Anterior Bilateral] 08/10/21 08/10/21 08/10/21 06:22 06:27 06:32 Pulse Rate 104 H 105 H 108 H Respiratory Rate Blood Pressure O2 Sat by Pulse 100 98 98 Oximetry O2 Sat by Pulse Oximetry [ Anterior Bilateral] 08/10/21 08/10/21 08/10/21 06:34 06:37 06:42 Pulse Rate 102 H 122 H 108 H Respiratory Rate Blood Pressure 142/75 O2 Sat by Pulse 99 99 Oximetry O2 Sat by Pulse Oximetry [ Anterior Bilateral] 08/10/21 08/10/21 08/10/21 06:47 06:52 06:57 Pulse Rate 112 H 105 H 115 H Respiratory Rate Blood Pressure O2 Sat by Pulse 99 99 100 Oximetry O2 Sat by Pulse Oximetry [ Anterior Bilateral] 08/10/21 08/10/21 08/10/21 07:02 07:03 07:07 Pulse Rate 113 H 106 H 99 H Respiratory Rate Blood Pressure 151/89 O2 Sat by Pulse 99 100 Oximetry O2 Sat by Pulse Oximetry [ Anterior Bilateral] 08/10/21 08/10/21 08/10/21 07:12 07:17 07:22 Pulse Rate 113 H 107 H 111 H Respiratory Rate Blood Pressure O2 Sat by Pulse 97 99 99 Oximetry O2 Sat by Pulse 100 Oximetry [ Anterior Bilateral] 08/10/21 08/10/21 08/10/21 07:27 07:32 07:57 Pulse Rate 104 H 107 H 105 H Respiratory Rate Blood Pressure O2 Sat by Pulse 99 99 99 Oximetry O2 Sat by Pulse Oximetry [ Anterior Bilateral] 08/10/21 08/10/21 08/10/21 08:02 08:03 08:07 Pulse Rate 117 H 98 H 103 H Respiratory Rate Blood Pressure 137/77 O2 Sat by Pulse 99 100 Oximetry O2 Sat by Pulse Oximetry [ Anterior Bilateral] 08/10/21 08/10/21 08/10/21 08:12 08:17 08:22 Pulse Rate 116 H 99 H 99 H Respiratory Rate Blood Pressure O2 Sat by Pulse 100 100 100 Oximetry O2 Sat by Pulse Oximetry [ Anterior Bilateral] 08/10/21 08/10/21 08/10/21 08:27 08:32 08:33 Pulse Rate 101 H 99 H 100 H Respiratory Rate Blood Pressure 129/76 O2 Sat by Pulse 99 100 Oximetry O2 Sat by Pulse Oximetry [ Anterior Bilateral] 08/10/21 08/10/21 08/10/21 08:37 08:42 08:47 Pulse Rate 104 H 106 H 99 H Respiratory Rate Blood Pressure O2 Sat by Pulse 99 100 100 Oximetry O2 Sat by Pulse Oximetry [ Anterior Bilateral] 08/10/21 08/10/21 08/10/21 08:52 08:57 09:02 Pulse Rate 113 H 104 H 115 H Respiratory Rate Blood Pressure O2 Sat by Pulse 100 99 100 Oximetry O2 Sat by Pulse Oximetry [ Anterior Bilateral] 08/10/21 08/10/21 08/10/21 09:03 09:07 09:12 Pulse Rate 107 H 103 H 136 H Respiratory Rate Blood Pressure 143/81 143/81 O2 Sat by Pulse 100 99 Oximetry O2 Sat by Pulse Oximetry [ Anterior Bilateral] 08/10/21 08/10/21 08/10/21 09:17 09:22 09:27 Pulse Rate 114 H 118 H 96 H Respiratory Rate Blood Pressure O2 Sat by Pulse 99 99 97 Oximetry O2 Sat by Pulse Oximetry [ Anterior Bilateral] 08/10/21 08/10/21 08/10/21 09:32 09:33 09:37 Pulse Rate 103 H 100 H 111 H Respiratory Rate Blood Pressure 126/69 O2 Sat by Pulse 98 98 Oximetry O2 Sat by Pulse Oximetry [ Anterior Bilateral] 08/10/21 08/10/21 08/10/21 09:42 09:47 09:52 Pulse Rate 109 H 113 H 115 H Respiratory Rate Blood Pressure O2 Sat by Pulse 98 99 98 Oximetry O2 Sat by Pulse Oximetry [ Anterior Bilateral] 08/10/21 08/10/21 08/10/21 09:57 10:02 10:07 Pulse Rate 118 H 113 H 98 H Respiratory Rate Blood Pressure 125/72 O2 Sat by Pulse 98 98 98 Oximetry O2 Sat by Pulse Oximetry [ Anterior Bilateral] 08/10/21 08/10/21 08/10/21 10:12 10:17 10:22 Pulse Rate 113 H 93 H 101 H Respiratory Rate Blood Pressure O2 Sat by Pulse 98 98 98 Oximetry O2 Sat by Pulse Oximetry [ Anterior Bilateral] 08/10/21 08/10/21 08/10/21 10:27 10:32 10:34 Pulse Rate 109 H 98 H 105 H Respiratory Rate Blood Pressure 124/77 O2 Sat by Pulse 98 97 Oximetry O2 Sat by Pulse Oximetry [ Anterior Bilateral] 08/10/21 08/10/21 08/10/21 10:37 10:42 10:47 Pulse Rate 110 H 97 H 105 H Respiratory Rate Blood Pressure O2 Sat by Pulse 98 98 98 Oximetry O2 Sat by Pulse Oximetry [ Anterior Bilateral] 08/10/21 08/10/21 08/10/21 10:52 10:57 11:02 Pulse Rate 114 H 103 H 101 H Respiratory Rate Blood Pressure 131/70 O2 Sat by Pulse 98 97 98 Oximetry O2 Sat by Pulse Oximetry [ Anterior Bilateral] 08/10/21 08/10/21 08/10/21 11:07 11:12 11:17 Pulse Rate 122 H 107 H 108 H Respiratory Rate Blood Pressure O2 Sat by Pulse 100 98 98 Oximetry O2 Sat by Pulse Oximetry [ Anterior Bilateral] 08/10/21 08/10/21 08/10/21 11:22 11:27 11:32 Pulse Rate 131 H 101 H 96 H Respiratory Rate Blood Pressure O2 Sat by Pulse 100 99 99 Oximetry O2 Sat by Pulse Oximetry [ Anterior Bilateral] 08/10/21 08/10/21 08/10/21 11:34 11:37 11:42 Pulse Rate 99 H 96 H 101 H Respiratory Rate Blood Pressure 124/65 O2 Sat by Pulse 99 99 Oximetry O2 Sat by Pulse Oximetry [ Anterior Bilateral] 08/10/21 08/10/21 08/10/21 12:00 12:03 12:05 Pulse Rate 120 H 106 H 104 H Respiratory Rate Blood Pressure 160/93 O2 Sat by Pulse 100 100 Oximetry O2 Sat by Pulse Oximetry [ Anterior Bilateral] 08/10/21 08/10/21 12:10 12:15 Pulse Rate 100 H 108 H Respiratory Rate Blood Pressure O2 Sat by Pulse 100 99 Oximetry O2 Sat by Pulse Oximetry [ Anterior Bilateral] - Labs Labs: Abnormal Labs 08/07/21 08/07/21 08/07/21 14:21 14:21 15:58 MCV 76 L MCH 25 L RDW 16.2 H Lymph % (Auto) POC Glucose Lactate Dehydrogenase 218 H Urine WBC (Auto) 10.0 H U Epithel Cells (Auto) 44.0 H Ur Total Protein 24 Hr Urine Total Protein 08/07/21 08/07/21 08/07/21 17:45 18:49 18:55 MCV 76 L MCH 25 L RDW 16.3 H Lymph % (Auto) 38.4 H POC Glucose 51 L Lactate Dehydrogenase Urine WBC (Auto) U Epithel Cells (Auto) Ur Total Protein 24 Hr 645.00 H Urine Total Protein 43 H 08/08/21 08/08/21 08/09/21 14:16 23:11 02:48 MCV MCH RDW Lymph % (Auto) POC Glucose 194 H 163 H 173 H Lactate Dehydrogenase Urine WBC (Auto) U Epithel Cells (Auto) Ur Total Protein 24 Hr Urine Total Protein 08/09/21 08/09/21 08/09/21 06:45 11:05 15:53 MCV MCH RDW Lymph % (Auto) POC Glucose 169 H 181 H 146 H Lactate Dehydrogenase Urine WBC (Auto) U Epithel Cells (Auto) Ur Total Protein 24 Hr Urine Total Protein 08/09/21 08/09/21 08/10/21 19:12 22:55 03:18 MCV MCH RDW Lymph % (Auto) POC Glucose 187 H 187 H 171 H Lactate Dehydrogenase Urine WBC (Auto) U Epithel Cells (Auto) Ur Total Protein 24 Hr Urine Total Protein 08/10/21 08/10/21 07:12 10:50 MCV MCH RDW Lymph % (Auto) POC Glucose 167 H 175 H Lactate Dehydrogenase Urine WBC (Auto) U Epithel Cells (Auto) Ur Total Protein 24 Hr Urine Total Protein Laboratory Results - last 24 hr 08/09/21 08/09/21 08/09/21 15:53 19:12 22:55 POC Glucose 146 H 187 H 187 H 08/10/21 08/10/21 08/10/21 03:18 07:12 10:50 POC Glucose 171 H 167 H 175 H
[2021-08-10] MEDS ORDERED: ePHEDrine SULFATE 50 MG/1 ML INJ IV PRN (15:13)
[2021-08-10] MEDS ORDERED: NALOXONE 2 MG/2 ML INJ IV PRN (15:13)
--- NOTE | 2021-08-10 15:15 | Anesthesia Consultation ---
Anesthesia Consult and Med Hx Date of service: 08/10/21 - Airway Anesthetic Teeth Evaluation: Poor ROM Head & Neck: Adequate Mental/Hyoid Distance: Adequate Mallampati Class: Class II Intubation Access Assessment: Good - Pulmonary Exam CTA: Yes - Cardiac Exam Cardiac Exam: RRR - Pre-Operative Health Status ASA Pre-Surgery Classification: ASA3 Proposed Anesthetic Plan: Epidural - Pulmonary Hx Smoking: No Hx Asthma: No Hx Respiratory Symptoms: No SOB: No COPD: No Home Oxygen Therapy: No Hx Pneumonia: No Hx Sleep Apnea: No - Cardiovascular System Hx Hypertension: Yes Hx Coronary Artery Disease: No Hx Heart Attack/AMI: No Hx Angina: No Hx Percutaneous Transluminal Coronary Angioplasty (PTCA): No Hx Cardia Arrhythmia: No Hx Pacemaker: No Hx Internal Defibrillator: No Hx Valvular Heart Disease: No Hx Heart Murmur: No Hx Peripheral Vascular Disease: No - Central Nervous System Hx Neuromuscular Disorder: No Hx Seizures: No CVA: No Hx Back Pain: Yes Hx Psychiatric Problems: No - Gastrointestinal Hx Ulcer: No Hx Gastroesophageal Reflux Disease: Yes - Endocrine Hx Renal Disease: No Hx End Stage Renal Disease: No Hx Cirrhosis: No Hx Liver Disease: No Hx Insulin Dependent Diabetes: Yes Hx Non-Insulin Dependent Diabetes: No Hx Thyroid Disease: No Hx Hypothyroidism: No Hx Hyperthyroidism: No - Hematic Hx Anemia: No Hx Sickle Cell Disease: No - Other Systems Hx Alcohol Use: No Hx Substance Use: No Hx Cancer: No Hx Obesity: Yes
--- NOTE | 2021-08-10 16:03 | Progress Note ---
Labor Epidural - Labor Epidural Start Time: 15:30 Stop Time: 15:50 Performed by:: MIRELA DICKSON Procedure: Patient is requesting a laboring epidural for laboring pain. Patient IDed, H&P reviewed, all questions and concerns were answered, and consent was signed. Timeout was performed at bedside. Patient in sitting position. Sterile prep and drape was performed. [3] ml of 1% lidocaine skin wheal at L[3]- L [4]. 18- gauge Tuohy epidural needle was advanced to loss of resistance with saline technique 6cm. Negative CSF negative blood. Epidural catheter advanced to [10] centimeters. [NEGATIVE] Aspiration [NEGATIVE] test dose. Sterile dressing applied. Patient tolerated procedure.
[2021-08-10] MEDS: fentaNYL-BUPIV 2 MCG/ML-0.125% 200 MCG/100 ML BAG EPIDURAL SCH (16:58)
[2021-08-10] MEDS ORDERED: FAMOTIDINE 20 MG/2 ML INJ IV ONE (23:54)
[2021-08-10] MEDS ORDERED: BICITRA ORAL LIQD 30ML PO ONE (23:58)
[2021-08-11] MEDS: fentaNYL-BUPIV 2 MCG/ML-0.125% 200 MCG/100 ML BAG EPIDURAL SCH ×2 (00:35→08:13)
--- NOTE | 2021-08-11 03:23 | Event Note ---
Date: 08/11/21 IUPC and scalp electrode placed. Category 1 tracing. Patient has had minimal cervical change from 4 to 5 cm. Currently 100% effaced and 0 station. Will continue to increase Pitocin appropriately for adequate contractility now that the IUPC is in place.
[2021-08-11] MEDS: OXYTOCIN DRIP 30 UNITS/500 ML BAG IV SCH (03:37)
[2021-08-11] MEDS ORDERED: BICITRA ORAL LIQD 30ML ONE (09:01)
[2021-08-11] MEDS ORDERED: FAMOTIDINE 20 MG/2 ML INJ IV ONE ×2 (09:01→09:02)
[2021-08-11] MEDS ORDERED: METOCLOPRAMIDE 10 MG/2 ML INJ ONE (09:01)
[2021-08-11] MEDS ORDERED: METOCLOPRAMIDE 10 MG/2 ML INJ IV ONE (09:02)
[2021-08-11] MEDS ORDERED: BICITRA ORAL LIQD 30ML PO ONE (09:02)
[2021-08-11] MEDS ORDERED: ceFAZolin/Water 2 GM/20 ML 2 GM/20 ML SYRINGE IV ONE (09:02)
[2021-08-11 09:12] LABS: Hematocrit 31.2 % (30.3-42.9); Mean Corpuscular HGB Conc 32 % (30-34); Mean Corpuscular Volume 77 fl (79-97); Platelet Count 180 K/mm3 (140-440); Red Blood Count 4.06 M/mm3 (3.65-5.03); Red Cell Distribution Width 15.9 % (13.2-15.2)
[2021-08-11] MEDS ORDERED: LIDOCAINE 2%/EPINEPHRINE 1:200,000 VIAL (20 ML) INFILTRATI ONE (09:14)
[2021-08-11] MEDS ORDERED: LACTATED RINGERS 1,000 ML IV SCH (09:15)
--- NOTE | 2021-08-11 09:36 | Anesthesia Day of Surgery ---
Anesthesia Day of Surgery - Day of Surgery Patient Examined: Yes Patient H&P Reviewed: Yes Patient is NPO: Yes Beta Blockers: No Cardiac Clearance: No Pulmonary Clearance: No Sylvain's Test: Negative
[2021-08-11] MEDS ORDERED: NALOXONE 0.4 MG/1 ML INJ IV PRN ×2 (09:38→11:00)
[2021-08-11] MEDS ORDERED: HYDROmorphone 1 MG/1 ML INJ IV PRN ×2 (09:38)
[2021-08-11] MEDS ORDERED: ONDANSETRON 4 MG/2 ML INJ IV PRN (09:38)
[2021-08-11] MEDS: PRENATAL VIT27-FE FUMARATE-FOLIC ACID VIT TAB PO SCH (09:52)
[2021-08-11] MEDS ORDERED: ceFAZolin/Water 2 GM/20 ML 2 GM/20 ML SYRINGE IV NR (10:00)
[2021-08-11] MEDS ORDERED: OXYTOCIN DRIP 30 UNITS/500 ML BAG IV SCH ×2 (10:00→11:00)
[2021-08-11] MEDS ORDERED: ONDANSETRON 4 MG/2 ML INJ ONE ×2 (10:07)
--- NOTE | 2021-08-11 10:07 | Event Note ---
Date: 08/11/21 The patient has continued to have adequate contractility and has not had any further cervical change past 5 cm. The patient was counseled for primary delivery.
--- NOTE | 2021-08-11 10:08 | Procedure Note ---
OB Delivery Note - Delivery Date of Delivery: 08/11/21 Surgeon: MINOO GORMAN Estimated blood loss: other (600 mL) - Section Preop diagnosis: arrest of dilation Postop diagnosis: same section procedure: section, primary low transverse Disposition: PACU Complications: none - Infant A at 1 minute: 8 at 5 minutes: 9 Infant Gender: Male (Weight 8 pounds 1 ounce)
[2021-08-11] MEDS ORDERED: ceFAZolin/STERILE WATER 2 GM/20 ML SYRINGE IV ONE (10:21)
[2021-08-11] MEDS ORDERED: WATER FOR IRRIG STERILE 1,500 ML BOTTLE IR ONE (10:35)
[2021-08-11] MEDS ORDERED: SODIUM CHLORIDE 0.9% IRR 1,500 ML BOTTLE IR ONE (10:35)
[2021-08-11] MEDS ORDERED: dexAMETHasone 20 MG/5 ML VIAL ONE (10:57)
[2021-08-11] MEDS ORDERED: BUPIVACAINE/PF (0.25%) 2.5 MG/ML 30 ML VIAL INFILTRATI ONE ×2 (10:57)
[2021-08-11] MEDS ORDERED: MORPHINE 4 MG/1 ML INJ IV PRN (11:00)
[2021-08-11] MEDS ORDERED: LANOLIN/ZINC/DIMETHICONE (LANSINOH) 7 GM TP PRN (11:00)
[2021-08-11] MEDS ORDERED: WITCH HAZEL/ GLYCERIN PAD TP PRN (11:00)
[2021-08-11] MEDS ORDERED: MAGNESIUM HYDROXIDE (MOM) ORAL LIQD UDC PO PRN (11:00)
[2021-08-11] MEDS ORDERED: KETOROLAC 30 MG/1 ML INJ ONE (11:04)
--- NOTE | 2021-08-11 11:20 | Operative Report ---
Operative Report Operative Report: Date of surgery: August 11, 2021 Preoperative diagnosis: at 36 with 5 weeks; insulin-dependent diabetes mellitus; -induced hypertension; arrest of dilatation Postoperative diagnosis: Same as above Procedure: Primary low transverse delivery Surgeon: Graciela Felipe M.D. Anesthesia: Regional Estimated blood loss: 600 mL Findings: Liveborn male with Apgars of 8 and 9 weight 8 pounds 1 ounce Indications: 21-year-old G1, P0 at 36+5 weeks who presents for induction of labor. Her intrapartum course is complicated by arrest of dilatation at 5 cm despite adequate contractility. Procedure: The patient was taken to the operating room and given regional anesthesia without complication. She was prepped and draped in a normal sterile fashion. A Pfannenstiel skin incision was made down to layer the fascia which was nicked in the midline extended laterally with the Bovie cautery. The superior aspect of the rectus fascia was grasped with Mallory clamps x2 and the rectus muscles off sharply. This was done in inferior fashion as well. The rectus muscle midline and peritoneum entered bluntly. An Jeremiah retractor was then inserted. A bladder blade was placed. The vesicouterine peritoneum was then entered sharply with Metzenbaum scissors. A bladder flap was created digitally. A low transverse uterine incision was then made and extended digitally. There was clear fluid upon entry into the uterine cavity. The head was delivered through the incision with fundal pressure. Nuchal cord x1 was manually reduced. The cord was clamped and cut x2 and was passed off to pediatrics. The placenta was then manually extracted. The uterus was then exteriorized and cleared of clots and debris. The uterine incision was then closed in a running locked fashion with 0 Vicryl additional imbricating stitch was applied for 2 layer closure. The vesicouterine peritoneum was reapproximated with 3-0 Vicryl in a running fashion. The posterior cul-de-sac was then copiously irrigated. The uterus was replaced back into the abdomen and pelvis were the gutters were then irrigated. The Jereimah retractor was then removed. The peritoneum was then reapproximated with 3-0 Vicryl incorporating the rectus muscle. The fascia was then closed with 0 Vicryl in a running fashion. The skin was then reapproximated with 3-0 Monocryl on a Jamil needle subcuticular fashion. Steri-Strips to place across the incision and a Crede procedures performed at the end of the surgery. A pressure dressing was applied to the incision. The surgery productive of a liveborn male with Apgars of 8 and 9 weight 8 pounds 1 ounce. The patient was taken to the recovery room in stable condition. All sponge laps and needle counts correct x2.
--- NOTE | 2021-08-11 12:36 | Post Anesthesia Evaluation ---
- Post Anesthesia Evaluation Patient Participated: Yes Airway Patent: Yes Stable Respiratory Function: Yes Nausea/Vomiting: No Temp > 96.8F: Yes Pain Manageable: Yes Adequeate Hydration: Yes Anesthesia Complications: No Block Receding Appropriately: Yes Patient on Ventilator: No
--- NOTE | 2021-08-11 12:36 | Progress Note ---
Regional Anesthesia Block - Regional Anesthesia Block Start Time: : Stop Time: : Performed By:: MIRELA DICKSON Procedure: Patient consented for TAP block for post surgical pain management. Patient identified, monitors placed, and time out performed. TAP identified bilaterally via ultrasound. Skin prepped bilaterally with [chlorhexidine] and [22g stimuplex] needle advanced to the TAP. [Marcaine 0.25% 35ml] injected under ultrasound guidance on the [left] side. [Marcaine 0.25% 35ml] injected under ultrasound guidance on the [right] side. Negative aspiration every 5mL, No change in heart rate or rhythm. Patient tolerated the procedure well. No apparent complications seen.
[2021-08-11] MEDS ORDERED: hydrALAZINE 20 MG/1 ML INJ IV ONE (13:00)
[2021-08-11] MEDS: LACTATED RINGERS 1,000 ML IV SCH ×2 (16:15→22:48)
[2021-08-11] MEDS: KETOROLAC 30 MG/1 ML INJ IV PRN (16:15)
[2021-08-11] MEDS: INSULIN REGULAR, HUMAN 100 UNITS/1 ML SUB-Q PRN ×2 (18:52→22:46)
[2021-08-11] MEDS: oxyCODONE /ACETAMINOPHEN 5-325MG TAB PO PRN (22:58)
[2021-08-12 00:10] LABS: Hematocrit 26.5 % (30.3-42.9); Hemoglobin 8.7 gm/dl (10.1-14.3)
[2021-08-12] MEDS: IBUPROFEN 600 MG TAB PO PRN (04:29)
[2021-08-12] MEDS: oxyCODONE /ACETAMINOPHEN 5-325MG TAB PO PRN ×3 (07:07→22:00)
--- NOTE | 2021-08-12 11:01 | Progress Note ---
Assessment and Plan - Patient Problems (1) Diabetes Current Visit: Yes Status: Acute Qualifiers: Diabetes mellitus type: type 2 Diabetes mellitus joint terminal attack controller insulin use: without shelter use Plan to address problem: Continue postoperative care Reassess for discharge home tomorrow (2) PIH ( induced hypertension) Current Visit: Yes Status: Acute Subjective - Subjective Date of service: 08/12/21 Principal diagnosis: IOL secondary to elevated B/Ps and uncontrolled DM Interval history: Patient has been able to ambulate in the room and has voided since removal of her Cramer. She states her pain is controlled. She is tolerating her diet without complication. She has had an improved response of her blood pressures to labetalol 400 mg twice a day Patient reports: appetite normal, voiding normally, pain well controlled : in NICU Objective - Vital Signs Latest vital signs: Vital Signs Temp Pulse Resp BP BP Pulse Ox Pulse Ox 08/12/21 10:03 134/89 08/12/21 07:07 20 08/12/21 06:25 98.9 F 91 H 16 142/93 98 08/12/21 04:29 20 08/12/21 02:18 98.6 F 96 H 18 143/86 97 08/11/21 22:58 20 08/11/21 21:55 92 H 153/89 08/11/21 21:47 98.7 F 92 H 16 153/89 99 08/11/21 19:35 100 08/11/21 18:17 100 08/11/21 17:25 98 F 94 H 18 162/95 100 08/11/21 16:21 100 08/11/21 14:00 100 08/11/21 13:15 98.4 F 90 20 131/77 100 08/11/21 13:00 97 H 20 135/82 98 08/11/21 12:45 89 20 153/89 99 08/11/21 12:30 98.5 F 84 18 150/84 98 08/11/21 12:15 88 20 149/86 98 08/11/21 12:00 88 20 158/87 99 08/11/21 11:45 91 H 20 150/80 98 08/11/21 11:40 82 20 178/101 98 08/11/21 11:35 98.5 F 84 20 176/101 99 Intake and Output 08/11/21 08/12/21 08/12/21 22:59 06:59 14:59 Intake Total 1058.75 480 Output Total 400 1400 Balance 658.75 -920 Intake: IV 818.75 Lactated Ringers 1,000 ml 818.75 @ 125 mls/hr IV DIRECT BRITTANY Rx#:[id number] Oral 240 Intake, Free Water 240 240 Output: Urine 400 1400 Indwelling Catheter 400 700 Void 700 Other: Total, Intake Amount 240 Total, Output Amount 400 400 # Voids Void 1 - Labs Labs: Abnormal lab results 08/11/21 08/11/21 08/11/21 Range/Units 18:32 22:36 23:47 Hgb 8.7 L (10.1-14.3) gm/dl Hct 26.5 L (30.3-42.9) % POC Glucose 212 H 163 H (70-105) mg/dL 08/12/21 Range/Units 07:35 Hgb (10.1-14.3) gm/dl Hct (30.3-42.9) % POC Glucose 120 H (70-105) mg/dL
[2021-08-12] MEDS: INSULIN REGULAR, HUMAN 100 UNITS/1 ML SUB-Q PRN (23:00)
[2021-08-13] MEDS: SIMETHICONE 80 MG CHEW TAB PO PRN ×2 (01:00→19:49)
[2021-08-13] MEDS: oxyCODONE /ACETAMINOPHEN 5-325MG TAB PO PRN ×2 (04:00→20:31)
--- NOTE | 2021-08-13 07:39 | Progress Note ---
Assessment and Plan A: POD #2 s/p primary at 36 wks Preeclampsia IDDM P: Transfer to Labor and Delivery for magnesium sulfate for seizure prophylaxis Resume Metformin and fasting and 2 hour postprandial accuchecks Encourage ambulation Subjective - Subjective Date of service: 08/13/21 Principal diagnosis: POD#2 s/p primary at 36 wks, IDDM Interval history: Pt without complaints presently. Labetalol previously increased to 400 mg BID. She has not yet received Magnesium sulfate for seizure prophylaxis. Baby in NICU. Patient reports: appetite normal, voiding normally, pain well controlled, flatus, bowel movement, ambulating normally [place]: in NICU Objective - Vital Signs Latest vital signs: Vital Signs Temp Pulse Resp BP BP Pulse Ox Pulse Ox 08/13/21 05:00 18 08/13/21 04:00 18 08/13/21 01:13 97.7 F 94 H 20 138/80 100 08/12/21 23:00 18 08/12/21 22:00 88 18 146/94 08/12/21 21:55 98.0 F 88 18 146/94 98 08/12/21 20:00 98 08/12/21 18:55 98 08/12/21 16:30 98 08/12/21 16:05 97.9 F 96 H 20 149/95 08/12/21 14:19 98 08/12/21 12:18 98 08/12/21 10:16 98 08/12/21 10:03 134/89 08/12/21 08:35 98 08/12/21 08:15 98 F 103 H 20 134/89 99 Intake and Output 08/12/21 08/13/21 08/13/21 22:59 06:59 14:59 Intake Total 600 480 Balance 600 480 Intake: Oral 600 480 Other: Total, Intake Amount 240 240 # Voids Void 1 1 - Exam Breasts: Present: deferred Abdomen: Present: soft, distention (moderate ) Uterus: Present: fundal height below umbilicus Extremities: Present: edema (1+) Incision: Present: dressed - Labs Labs: Abnormal lab results 08/12/21 08/12/21 08/12/21 Range/Units 07:35 11:36 15:59 POC Glucose 120 H 142 H 130 H (70-105) mg/dL 08/12/21 Range/Units 22:56 POC Glucose 159 H (70-105) mg/dL
[2021-08-13] MEDS ORDERED: MAGNESIUM SULFATE 4 GM/100 ML BAG IV ONE ×2 (08:29→08:30)
[2021-08-13] MEDS ORDERED: MAGNESIUM SULFATE 40GM/1000ML 40 GM/1,000 ML BAG IV ONE (08:29)
[2021-08-13] MEDS: LACTATED RINGERS 1,000 ML IV SCH ×2 (08:53→19:34)
[2021-08-13] MEDS ORDERED: hydrALAZINE 20 MG/1 ML INJ IV PRN (09:00)
[2021-08-13] MEDS ORDERED: CALCIUM GLUCONATE 1000 MG/10 ML INJ IV PRN (09:00)
[2021-08-13] MEDS ORDERED: MAGNESIUM SULFATE 40GM/1000ML 40 GM/1,000 ML BAG IV SCH (09:00)
[2021-08-13] MEDS: metFORMIN 500 MG TAB PO SCH ×2 (10:13→19:34)
[2021-08-13] MEDS: INSULIN REGULAR, HUMAN 100 UNITS/1 ML SUB-Q PRN (11:52)
[2021-08-14] MEDS: oxyCODONE /ACETAMINOPHEN 5-325MG TAB PO PRN (04:16)
[2021-08-14] MEDS: KETOROLAC 30 MG/1 ML INJ IV PRN (05:54)
[2021-08-14] MEDS: LACTATED RINGERS 1,000 ML IV SCH (06:01)
[2021-08-14] MEDS: IBUPROFEN 600 MG TAB PO PRN (10:07)
[2021-08-14] MEDS: metFORMIN 500 MG TAB PO SCH (10:07)
--- NOTE | 2021-08-14 12:34 | Progress Note ---
Assessment and Plan A: PPD# 3 s/p LTCS at 36weeks IDDM Pre-eclampsia s/p Mag Sulfate P: Continue with routine care with discharge anticipated this afternoon Subjective - Subjective Date of service: 08/14/21 Principal diagnosis: POD#2 s/p primary at 36 wks, IDDM Interval history: PPD# 3 s/p C/S at 36weeks. Patient is without complaints. Reporting adequate pain control, decreasing lochia and no problems with voiding nor ambulation. Patient reports: appetite normal, voiding normally, pain well controlled, bowel movement, ambulating normally : in NICU Objective - Vital Signs Latest vital signs: Vital Signs Temp Pulse Resp BP Pulse Ox Pulse Ox 08/14/21 10:06 86 131/78 08/14/21 09:50 92 H 99 08/14/21 09:45 85 99 08/14/21 09:40 83 99 08/14/21 09:35 80 98 08/14/21 09:30 98.6 F 79 20 98 08/14/21 09:26 86 131/78 08/14/21 09:25 85 97 08/14/21 09:20 85 99 08/14/21 09:15 93 H 98 08/14/21 09:10 84 99 08/14/21 09:05 92 H 99 08/14/21 09:00 85 98 08/14/21 08:54 86 98 08/14/21 08:50 89 96 08/14/21 08:48 127 H 88 08/14/21 08:45 77 154/92 97 08/14/21 08:40 75 97 08/14/21 08:35 81 98 08/14/21 08:30 78 98 08/14/21 08:25 77 98 08/14/21 08:20 77 99 08/14/21 08:15 80 161/89 100 08/14/21 08:09 77 98 08/14/21 08:05 78 98 08/14/21 08:00 78 98 08/14/21 07:55 78 98 08/14/21 07:50 74 100 08/14/21 07:45 77 149/84 99 08/14/21 07:40 78 98 08/14/21 07:35 71 99 08/14/21 07:30 78 98 08/14/21 07:25 79 98 08/14/21 07:20 79 98 08/14/21 07:15 75 98 08/14/21 07:14 74 137/85 08/14/21 07:10 77 99 08/14/21 07:05 83 100 08/14/21 07:00 82 99 08/14/21 06:55 79 97 08/14/21 06:50 79 97 08/14/21 06:45 73 153/82 98 08/14/21 06:39 82 98 08/14/21 06:35 81 99 08/14/21 06:30 84 99 08/14/21 06:25 84 98 08/14/21 06:20 84 98 08/14/21 06:15 84 99 08/14/21 06:14 84 137/83 08/14/21 06:10 81 98 08/14/21 06:05 98.5 F 86 18 99 08/14/21 06:00 84 98 08/14/21 05:55 78 99 08/14/21 05:50 80 97 08/14/21 05:45 81 98 08/14/21 05:44 79 145/83 08/14/21 05:40 86 98 08/14/21 05:35 80 99 08/14/21 05:30 82 98 08/14/21 05:25 82 98 08/14/21 05:20 89 98 08/14/21 05:15 84 99 08/14/21 05:14 82 139/84 08/14/21 05:10 86 98 08/14/21 05:05 83 98 08/14/21 05:00 82 98 08/14/21 04:55 83 98 08/14/21 04:50 83 98 08/14/21 04:45 80 99 08/14/21 04:44 82 130/80 08/14/21 04:40 95 H 99 08/14/21 04:35 89 98 08/14/21 04:30 82 98 08/14/21 04:25 91 H 98 08/14/21 04:20 91 H 98 08/14/21 04:15 87 98 08/14/21 04:14 88 131/83 08/14/21 04:10 82 98 08/14/21 04:05 82 97 08/14/21 04:00 83 96 08/14/21 03:55 84 96 08/14/21 03:50 83 96 08/14/21 03:45 86 97 08/14/21 03:44 91 H 128/90 08/14/21 03:40 82 96 08/14/21 03:35 91 H 99 08/14/21 03:30 85 100 08/14/21 03:25 87 98 08/14/21 03:20 91 H 98 08/14/21 03:15 82 98 08/14/21 03:14 82 141/82 08/14/21 03:10 78 98 08/14/21 03:05 85 97 08/14/21 03:00 86 97 08/14/21 02:55 87 98 08/14/21 02:50 86 98 08/14/21 02:45 87 97 08/14/21 02:44 83 140/91 08/14/21 02:40 90 97 08/14/21 02:35 91 H 99 08/14/21 02:30 87 98 08/14/21 02:25 90 99 08/14/21 02:20 90 98 08/14/21 02:15 95 H 98 08/14/21 02:14 89 137/86 08/14/21 02:10 93 H 98 08/14/21 02:05 90 98 08/14/21 02:00 95 H 98 08/14/21 01:55 94 H 97 08/14/21 01:50 90 96 08/14/21 01:45 90 98 08/14/21 01:44 91 H 138/90 08/14/21 01:40 92 H 98 08/14/21 01:35 100 H 97 08/14/21 01:30 91 H 97 08/14/21 01:25 91 H 97 08/14/21 01:20 94 H 97 08/14/21 01:15 91 H 98 08/14/21 01:14 90 137/85 08/14/21 01:10 90 98 08/14/21 01:05 94 H 98 08/14/21 01:00 98 H 99 08/14/21 00:55 95 H 99 08/14/21 00:50 96 H 97 08/14/21 00:45 100 H 134/94 99 08/14/21 00:40 88 96 08/14/21 00:35 88 96 08/14/21 00:30 89 96 08/14/21 00:25 88 97 08/14/21 00:20 85 97 08/14/21 00:15 85 97 08/14/21 00:14 87 151/91 08/14/21 00:10 87 97 08/14/21 00:05 91 H 97 08/14/21 00:00 92 H 97 08/13/21 23:54 97 H 93 08/13/21 23:49 88 97 08/13/21 23:44 90 168/94 97 08/13/21 23:39 89 97 08/13/21 23:35 88 96 08/13/21 23:30 97 H 97 08/13/21 23:25 93 H 97 08/13/21 23:20 93 H 97 08/13/21 23:14 96 H 169/89 96 08/13/21 23:10 91 H 97 08/13/21 23:05 90 97 08/13/21 23:00 90 97 08/13/21 22:55 91 H 97 08/13/21 22:50 86 97 08/13/21 22:45 92 H 146/82 99 08/13/21 22:40 90 97 08/13/21 22:35 90 97 08/13/21 22:30 90 97 08/13/21 22:25 95 H 98 08/13/21 22:20 93 H 98 08/13/21 22:15 97 H 98 08/13/21 22:14 93 H 155/90 08/13/21 22:10 103 H 98 08/13/21 22:05 101 H 99 08/13/21 22:00 99 H 96 08/13/21 21:57 104 H 93 08/13/21 21:55 96 H 97 08/13/21 21:50 94 H 97 21 21:45 97 H 167/89 99 21 21:40 99 H 97 08/13/21 21:34 92 H 97 08/13/21 21:29 94 H 97 08/13/21 21:25 92 H 98 08/13/21 21:20 92 H 97 21 21:15 97 H 98 21 21:14 90 158/87 21 21:10 109 H 99 21 21:04 89 100 10/25/21 21:00 92 H 98 08/13/21 20:55 95 H 98 08/13/21 20:49 98 H 99 08/13/21 20:45 95 H 100 08/13/21 20:44 94 H 138/89 08/13/21 20:40 96 H 100 08/13/21 20:35 96 H 100 08/13/21 20:29 99 H 100 08/13/21 20:25 98 H 99 08/13/21 20:20 96 H 100 08/13/21 20:15 98.2 F 98 H 18 100 08/13/21 20:14 98 H 137/85 08/13/21 20:09 110 H 100 08/13/21 20:05 107 H 100 100 08/13/21 19:59 107 H 100 08/13/21 19:54 106 H 99 08/13/21 19:49 106 H 99 08/13/21 19:45 99 H 152/89 08/13/21 19:44 109 H 100 08/13/21 19:39 103 H 100 08/13/21 19:33 114 H 100 08/13/21 19:29 96 H 99 08/13/21 19:24 91 H 99 08/13/21 19:18 90 99 08/13/21 19:15 105 H 163/102 08/13/21 19:13 89 99 08/13/21 19:08 89 99 08/13/21 19:03 89 100 08/13/21 18:58 87 99 08/13/21 18:54 91 H 100 08/13/21 18:49 99 H 100 08/13/21 18:44 95 H 158/101 100 08/13/21 18:42 96 H 154/89 08/13/21 18:39 92 H 98 08/13/21 18:33 104 H 100 08/13/21 18:29 96 H 100 08/13/21 18:23 105 H 100 08/13/21 18:18 101 H 100 08/13/21 18:14 99 H 161/92 08/13/21 18:13 100 H 100 08/13/21 18:08 103 H 100 08/13/21 18:03 102 H 100 08/13/21 17:58 102 H 100 08/13/21 17:54 93 H 98 10/25/21 17:48 102 H 97 08/13/21 17:44 110 H 141/92 08/13/21 17:43 103 H 98 08/13/21 17:38 94 H 97 08/13/21 17:36 98 H 93 08/13/21 17:34 90 98 08/13/21 17:28 86 98 08/13/21 17:23 86 97 08/13/21 17:18 85 97 08/13/21 17:15 96 H 165/93 08/13/21 17:13 83 98 08/13/21 17:08 84 98 08/13/21 17:03 84 98 08/13/21 17:00 18 100 08/13/21 16:58 85 99 08/13/21 16:53 85 99 08/13/21 16:48 88 98 08/13/21 16:45 89 156/92 08/13/21 16:43 98 H 100 08/13/21 16:38 92 H 100 08/13/21 16:34 93 H 100 08/13/21 16:28 91 H 99 08/13/21 16:23 92 H 100 08/13/21 16:18 93 H 100 08/13/21 16:14 87 141/93 08/13/21 16:13 98 H 100 08/13/21 16:08 95 H 100 08/13/21 16:03 93 H 100 08/13/21 15:58 100 H 100 08/13/21 15:53 85 99 08/13/21 15:49 102 H 100 08/13/21 15:45 87 155/95 08/13/21 15:43 92 H 100 08/13/21 15:38 94 H 100 08/13/21 15:33 90 100 08/13/21 15:28 97 H 99 08/13/21 15:23 96 H 98 08/13/21 15:18 98 H 99 08/13/21 15:15 85 142/92 08/13/21 15:13 99 H 99 08/13/21 15:09 92 H 130/71 08/13/21 15:08 95 H 99 08/13/21 15:03 86 98 08/13/21 15:00 18 100 08/13/21 14:58 90 98 08/13/21 14:53 87 99 08/13/21 14:48 84 96 08/13/21 14:45 90 182/104 08/13/21 14:43 89 97 08/13/21 14:38 88 97 08/13/21 14:33 88 97 08/13/21 14:28 90 98 08/13/21 14:23 93 H 96 08/13/21 14:18 86 98 08/13/21 14:13 102 H 100 08/13/21 14:09 106 H 77 L 08/13/21 14:08 106 H 84 08/13/21 14:03 87 96 08/13/21 13:58 84 96 08/13/21 13:53 90 96 08/13/21 13:48 89 96 08/13/21 13:44 87 140/81 08/13/21 13:43 91 H 96 08/13/21 13:38 89 96 08/13/21 13:33 94 H 96 08/13/21 13:28 89 98 08/13/21 13:23 89 98 08/13/21 13:18 87 98 08/13/21 13:14 91 H 138/85 08/13/21 13:13 95 H 98 08/13/21 13:08 113 H 100 08/13/21 13:03 96 H 98 08/13/21 13:00 18 100 08/13/21 12:58 89 99 08/13/21 12:53 95 H 99 08/13/21 12:48 100 H 98 08/13/21 12:43 93 H 99 08/13/21 12:38 95 H 97 Intake and Output 08/13/21 08/14/21 08/14/21 23:59 07:59 15:59 Intake Total 1000 Output Total 1670 1775 Balance -7637 -160 Intake: IV 1000 Lactated Ringers 1,000 ml 1000 @ 125 mls/hr IV DIRECT BRITTANY Rx#:[id number] Output: Urine 1670 1775 Indwelling Catheter 1670 1775 Other: Total, Output Amount 400 425 - Labs Labs: Abnormal lab results 08/13/21 08/13/21 08/13/21 Range/Units 16:02 20:19 21:02 POC Glucose 140 H (70-105) mg/dL Magnesium 5.10 H 5.30 H (1.7-2.3) mg/dL 08/14/21 Range/Units 02:28 POC Glucose (70-105) mg/dL Magnesium 5.40 H (1.7-2.3) mg/dL
--- NOTE | 2021-08-14 12:40 | Discharge Summary ---
Providers - Providers Date of Admission: 08/08/21 12:48 Date of discharge: 08/14/21 Attending physician: MINOO GORMAN Primary care physician: MINOO GORMAN Hospitalization Reason for admission: induction of labor (Preeclampsia and IDDM-uncontrolled), IUP at term Delivery: Procedure: section (Arrest of dilation), primary low transverse Episiotomy: none Laceration: none Incision: normal, dry, intact Other procedures: none complications: none Discharge diagnosis: IUP at term delivered baby: male Hospital course: Patient was sent from [facility] office for Preeclampsia and uncontrolled IDDM. Her induction failed due to arrest of dilation and she went on to have a primary LTCS. She also received Magnesium Sulfate for seizure prophylaxis. Outside of the aforementioned her course was not unusual. Condition at discharge: Good Disposition: 01 HOME / SELF CARE / HOMELESS Plan - Discharge Medications Prescriptions: Ferrous Sulfate [Feosol 325 MG tab] 325 mg PO BID #60 tablet Ferrous Sulfate [Ferrous Sulfate 324 MG] 325 mg PO TID #90 tablet. labetaloL [Labetalol 200mg TAB] 400 mg PO BID #120 tablet labetaloL [Labetalol 200mg TAB] 400 mg PO BID #60 tablet Ibuprofen [Motrin] 800 mg PO Q8HR PRN #30 tablet PRN Reason: Pain, Moderate (4-6) Ibuprofen [Motrin 800 MG tab] 600 mg PO Q8HR PRN #30 tablet PRN Reason: Pain, Moderate (4-6) oxyCODONE /ACETAMINOPHEN [Percocet 5/325] 1 tab PO Q6HR PRN #30 tablet PRN Reason: Pain - Provider Discharge Summary Activity: routine, no heavy lifting 4 weeks, no strenuous exercise, other (No sex for 8 weeks) Diet: routine Instructions: routine Additional instructions: [] Smoking cessation referral if applicable(refer to patient education folder for contact #) [] Refer to [facility] Booklet Call your doctor immediately for: * Fever > 100.5 * Heavy vaginal bleeding ( >1 pad per hour) * Severe persistent headache * Shortness of breath * Reddened, hot, painful area to leg or breast * Drainage or odor from incision. * Keep incision clean and dry at all times and follow doctor's instructions regarding bathing/showering Please schedule infants circumcision once he is discharged from NICU. Return to [facility] for BP check in 1 week - Follow up plan Follow up: MINOO GORMAN MD [Primary Care Provider] - 7 Days
[2021-08-14 12:47] VITALS: BP 143/90
== END 2021-08-14 14:00 | disposition home or self-care (01) | DRG 766 ==
LOC: TRG 13:07 → APU 13:08 → LD 19:49 → TRG 08-08 12:48 → LD 08-08 12:48 → OB 08-11 14:17 → LD 08-13 08:30 → OB 08-14 11:01
PROVIDERS: ADMIT Obstetrics & Gynecology; ATTEND Obstetrics & Gynecology
PROC: 0U7C7ZZ Dilation of Cervix, Via Natural or Artificial Opening (ICD-10-PCS; 2021-08-09)
PROC: 10D00Z1 Extraction of Products of Conception, Low, Open Approach (ICD-10-PCS; principal; 2021-08-11)
PROC: 10H07YZ Insertion of Other Device into Products of Conception, Via Natural or Artificial Opening (ICD-10-PCS; 2021-08-11)
PROC: 3E0T3BZ Introduction of Anesthetic Agent into Peripheral Nerves and Plexi, Percutaneous Approach (ICD-10-PCS; 2021-08-11)
PROC: 10907ZC Drainage of Amniotic Fluid, Therapeutic from Products of Conception, Via Natural or Artificial Opening (ICD-10-PCS; 2021-08-11)
DX: O13.4 Gestational [pregnancy-induced] hypertension without significant proteinuria, complicating childbirth (principal); O36.63X0 Maternal care for excessive fetal growth, third trimester, not applicable or unspecified; O24.12 Pre-existing type 2 diabetes mellitus, in childbirth; E11.9 Type 2 diabetes mellitus without complications; Z20.822 Contact with and (suspected) exposure to COVID-19; Z91.19 Patient's noncompliance with other medical treatment and regimen; O99.214 Obesity complicating childbirth; O61.8 Other failed induction of labor; Z37.0 Single live birth; O14.94 Unspecified pre-eclampsia, complicating childbirth; O99.62 Diseases of the digestive system complicating childbirth; K21.9 Gastro-esophageal reflux disease without esophagitis; O62.1 Secondary uterine inertia; Z88.8 Allergy status to other drugs, medicaments and biological substances; Z3A.36 36 weeks gestation of pregnancy
CPT/HCPCS: 36415; 59200; 81001; 82565; 82962; 83615; 83735; 84156; 84450; 84460; 84550; 85014; 85018; 85025; 85027; 86592; 86850; 86900; 86901; 87086; 93970; G0378; J0360; J0595; J0690; J0702; J1100; J1815; J1885; J2405; J2590; J2765; J3010; J3475; J3490; J7120; U0003